=== PATIENT | male | born 1965 | race Caucasian/White ===

== ENCOUNTER 2020-10-16 14:05 | Outpatient (CLI) | payer OTHER, SELFPAY ==
[2020-10-16 14:46] LABS: Anion Gap 5 mmol/L (8-16); Blood Urea Nitrogen 16 mg/dL (9-20); Calcium 9.4 mg/dL (8.4-10.2); Carbon Dioxide 30 mmol/L (22-30); Chloride 106 mmol/L (98-107); Estimated Glomerular Filt Rate > 60; Glucose 73 mg/dL (75-110); Potassium 3.6 mmol/L (3.4-5.0); Sodium 141 mmol/L (137-145)
[2020-10-16 14:50] LABS: Prothrombin Time 13.6 Seconds (11.1-14.7)
[2020-10-16 14:51] LABS: Partial Thromboplastin Time 30.7 SECONDS (22.3-36.8)
== END 2020-10-16 14:06 | disposition home or self-care (01) ==
PROVIDERS: Anesthesiology; PCP Family Medicine; Visit Provider Urology
DX: N20.0 Calculus of kidney (principal); Z79.899 Other long term (current) drug therapy; Z01.818 Encounter for other preprocedural examination
CPT/HCPCS: 36415; 80048; 85610; 85730; 87086

== ENCOUNTER → 2020-10-17 01:47 | Outpatient (CLI) | payer OTHER, SELFPAY ==
[2020-10-17 19:23] LABS: SARS-CoV-2 RNA PCR Negative
== END ==
PROVIDERS: PCP Family Medicine; Visit Provider Urology
DX: Z01.812 Encounter for preprocedural laboratory examination (principal); Z20.822 Contact with and (suspected) exposure to COVID-19
CPT/HCPCS: C9803; U0003; U0005

== ENCOUNTER 2020-10-20 02:40 | Day surgery (SDC) | payer OTHER, SELFPAY ==
[2020-10-13 09:43] VITALS: BMI 34.7
--- NOTE | 2020-10-19 10:25 | WPDANESEPPF ---
Anes - Initial Pre Proc Eval Procedure: Operation Date: 10/20/20 09:30 Proposed Procedures p Cystoscopy, With Possible Left Retrograde Pyelogram - Garrison Rodriguez MD s Left Extracorporeal Shock Wave Lithotripsy - Garrison Rodriguez MD Date/Time: 10/19/20 10:25 Surgeon: Garrison Rodriguez MD Pre Op Diagnosis: Left Renal Stone Patient Data Age: 55 Gender: M Height: 1.75 m Weight: 106.6 kg Allergies Allergy/AdvReac Type Severity Reaction Status Date / Time codeine Allergy Severe Hives Verified 10/20/20 08:12 PCN Allergy Severe Hives Uncoded 10/20/20 08:12 Home Medications Medication Instructions Recorded Confirmed Type albuterol 90 mcg INHALATION Q6H PRN 10/13/20 10/13/20 History aspirin [Adult Aspirin] 81 mg PO DAILY 10/13/20 10/20/20 History atorvastatin 20 mg PO 3XW 10/13/20 10/13/20 History budesonide-formoterol [Symbicort] 2 puff INHALATION BID 10/13/20 10/13/20 History carvedilol 12.5 mg PO BID 10/13/20 10/20/20 History ergocalciferol (vitamin D2) 1,000 unit PO DAILY 10/13/20 10/20/20 History [Vitamin D2] famotidine 20 mg PO DAILY 10/13/20 10/13/20 History leflunomide 20 mg PO DAILY 10/13/20 10/13/20 History lisinopril 10 mg PO BID 10/13/20 10/13/20 History montelukast 10 mg PO DAILY 10/13/20 10/13/20 History multivitamin [Men's Multi-Vitamin] 1 tablet PO DAILY 10/13/20 10/13/20 History omega 5-rve-tcu-fish oil [Fish Oil] 1 cap PO DAILY 10/13/20 10/13/20 History omeprazole 20 mg PO DAILY 10/13/20 10/13/20 History spironolactone 12.5 mg PO BID 10/13/20 10/13/20 History vitamin B80-akmbf acid 1 tablet PO DAILY 10/13/20 10/13/20 History Patient hx anesthesia problems: none Family hx anesthesia problems: none PMFSH Past Medical History Medical History (Updated 10/20/20 @ 08:37 by Jero Cerda DO) Asthma Cardiomyopathy EF -50% GERD (gastroesophageal reflux disease) Hyperlipidemia Hypertension ALAN (obstructive sleep apnea) Social History Social History Smoking status: Never smoker Alcohol intake: never Substance use: never Substance use type: does not use Living arrangements: with family Spiritual care concerns: No Anes - Eval Final PreProcedure Day of Procedure 10/19/20 10:25 Patient weight: obese Heart: regular rate and rhythm Lungs: clear to auscultation and normal air movement Airway: Mallampati scale class II Neurological: alert and oriented Last oral intake: >/= 8 hours ASA classification: III Emergent: no Anesthetic plan: proceed Anesthesia type and monitoring: general LMA and standard monitoring Informed Consent: The patient's anesthetic plan and its attendant risks and benefits were discussed with the patient/family/POA. Questions were solicited and answers provided to the satisfaction of the patient/family/POA.
[2020-10-20] VITALS (7 sets, daily range): BP systolic 108–141; BP diastolic 72–83; PULSE 57–70; RESP 10–20; TEMP 35.7–36.6; O2SAT 99–100
--- NOTE | ~2020-10-20 | XR_ITS ---
EXAMINATION: XR abdomen/kub 1V INDICATION: Planning for left lithotripsy TECHNIQUE: Supine views of the abdomen were obtained on 2 radiographs. COMPARISON: None FINDINGS: No definite urolithiasis is identified. Pelvic calcifications likely reflect phleboliths. T he bowel gas pattern is normal. IMPRESSION: 1. No definite urolithiasis identified. Reviewed, dictated and finalized at location [facility].
--- NOTE | 2020-10-20 06:21 | WPDHPUPDATE1 ---
History and Physical Update Update Date/Time: 10/20/20 06:21 History and Physical has been reviewed, including an updated exam of the patient. There are NO changes in the patient's condition. Risks, benefits, and alternatives have been discussed and questions answered. Patient agrees to proceed with procedure.
[2020-10-20] MEDS: LACTATED RINGERS 1,000 ML 30 ML IV CONT (08:40)
--- NOTE | 2020-10-20 08:58 | SUR.PREOP ---
films at foot of bed just on crutches pre arrival for recent injury
[2020-10-20] MEDS: levoFLOXacin 500 MG/D5W 100 ML 500 MG/100 ML BAG 100 MG IVPB (09:26)
--- NOTE | 2020-10-20 09:55 | PM.PROC ---
Procedure Note - Detailed Date of procedure: 10/20/20 Pre-op diagnosis: Left Renal Stone Post-op diagnosis: same Procedure performed: 1. Cystoscopy, left retrograde pyelography 2. Left ESWL Description of procedure: The patient was brought to the operative suite where he was placed in the supine position on the Dornier lithotripter table. Flexible cystoscopy was undertaken with a 16F flexible cystoscopy. There were no urethral strictures. The prostatic urethra estimated length was 1.5cm. There was mild obstruction of the prostatic urethra with no median lobe enlargement. The bladder mucosa was normal and there was a single, orthotopic ureteral orifice bilaterally. A 0.035 glidewire was advanced into the left renal pelvis under fluoroscopy. An angiographic catheter was placed and used to inject contrast so that the upper pole calyx (site of 6mm stone) could be located. A total of 2500 shocks were delivered at a power setting of 4. There appeared to be good fragmentation of the stone. The patient tolerated the procedure well and was taken to the recovery room in good condition. Anesthesia: GLMA Surgeon: Garrison Rodriguez MD Estimated blood loss (mL): 0 Drains: No Packing: No Pathology: none sent Complications: No immediate complications Condition: stable Disposition: PACU
== END 2020-10-20 12:10 | disposition home or self-care (01) ==
PROVIDERS: PCP Family Medicine; Visit Provider Urology
PROC: (CPT 52352; principal; 2020-10-20 09:30)
PROC: (CPT 50590; 2020-10-20 09:30)
DX: N20.0 Calculus of kidney (principal); Z79.82 Long term (current) use of aspirin; Z79.51 Long term (current) use of inhaled steroids; J45.909 Unspecified asthma, uncomplicated; I42.9 Cardiomyopathy, unspecified; E78.5 Hyperlipidemia, unspecified; I10 Essential (primary) hypertension; G47.33 Obstructive sleep apnea (adult) (pediatric); E66.9 Obesity, unspecified; Z68.35 Body mass index [BMI] 35.0-35.9, adult; M19.90 Unspecified osteoarthritis, unspecified site; K21.9 Gastro-esophageal reflux disease without esophagitis
CPT/HCPCS: 50590; 36415; 74018; 80048; 85610; 85730; 87086; A9270; C1758; C1769; C9803; J1956; J2250; J2405; J2704; J3010; J7030; J7120; Q9966; U0003; U0005

== ENCOUNTER 2020-11-03 14:06 | Outpatient (CLI) | payer OTHER, SELFPAY ==
--- NOTE | ~2020-11-03 | XR_ITS ---
XR abdomen/kub 1V DATE: 11/03/2020 14:26 INDICATION: Left kidney stone TECHNIQUE: AP projection, 2 views COMPARISON: 10/20/2020 KUB FINDINGS: No evidence of bowel obstruction. The psoas shadows are intact. No visceromegaly is evident . No significant abnormal calcification is evident. The lung bases appear clear. Included skeletal structures are unremarkable. IMPRESSION: Nonspecific abdomen Reviewed, dictated and finalized at [facility]. Reviewed, dictated and finalized at location [facility]. IMPRESSION: Nonspecific abdomen
== END 2020-11-03 14:07 | disposition home or self-care (01) ==
PROVIDERS: PCP Family Medicine; Visit Provider Urology
DX: N20.0 Calculus of kidney (principal)
CPT/HCPCS: 74018

== ENCOUNTER → 2020-11-08 13:20 | Outpatient (CLI) | payer OTHER, SELFPAY ==
--- NOTE | ~2020-11-08 | CT_ITS ---
EXAMINATION: CT abdomen pelvis wo con DATE: 11/08/2020 13:33 INDICATION: Bilateral renal stones TECHNIQUE: Computed tomography (CT) of the abdomen and pelvis was performed without intravenous contr ast. The dose-length product was 999.83 mGy-cm. Automated exposure control and iterative reconstructi on technique were employed. COMPARISON: None. FINDINGS: Lung bases are unremarkable. Heart size is normal. No significant vascular abnormality. No lymphadenopathy. There are bilateral nonobstructing renal stones measuring 3 mm or less. No ureteral stones or hydronephrosis. Gallbladder is present. Enlarged prostate gland. Fatty infiltration of the liver. Spleen, pancreas, adrenal glands are unremarkable. Nonobstructive bowel gas pattern. No free a ir or free fluid. IMPRESSION: 1. Nonobstructing bilateral nephrolithiasis. 2: Enlarged prostate gland. 3: Hepatic steatosis. Reviewed, dictated and finalized at location [facility].
== END ==
PROVIDERS: Visit Provider Nurse Practitioner Adult Health
DX: N20.0 Calculus of kidney (principal); K76.0 Fatty (change of) liver, not elsewhere classified; N40.0 Benign prostatic hyperplasia without lower urinary tract symptoms
CPT/HCPCS: 74176

== ENCOUNTER 2021-06-01 07:55 | Outpatient (RCR) | payer OTHER, SELFPAY ==
[2021-06-01 08:10] VITALS: BP 124/67; PULSE 81; RESP 20; TEMP 36; O2SAT 97
[2021-06-01] MEDS: ACETAMINOPHEN 325 MG TABLET 650 MG PO (08:13)
[2021-06-01] MEDS: FAMOTIDINE 20 MG TABLET PO (08:14)
[2021-06-01] MEDS: diphenhydrAMINE HCl CAP 25 MG CAPSULE PO (08:14)
[2021-06-01 09:46] VITALS: BP 108/66
--- NOTE | 2021-06-04 08:48 | PC.NURSE ---
Called Mr Dominguez and he is going to return our call per his .
--- NOTE | 2021-06-04 09:30 | PC.NURSE ---
MR Dominguez and his called back, he stated he is having a rough morning. He stated he has had a headache all weekend and a fever Friday evening, he woke up today feeling very weak, and feeling like he is going to fall over he stated. He also, said he has a horrible stomach ache and his is going to call EMS for him as he is to weak to walk she said. They will update us they verbalized.
== END 2021-06-01 17:00 ==
LOC: AMCINF 07:55
PROVIDERS: PCP Physician Assistant; Visit Provider Internal Medicine Hematology & Oncology
DX: U07.1 COVID-19 (principal); I42.9 Cardiomyopathy, unspecified; J44.9 Chronic obstructive pulmonary disease, unspecified
CPT/HCPCS: A9270; M0243; Q0244

== ENCOUNTER 2023-06-10 13:29 | Emergency (ER) | payer OTHER, SELFPAY ==
--- NOTE | ~2023-06-10 | CT_ITS ---
EXAMINATION: CT abdomen pelvis wo con DATE: 06/10/2023 14:35 INDICATION: Nephrolithiasis presenting with right flank pain. TECHNIQUE: Computed tomography (CT) of the abdomen and pelvis was performed without intravenous contr ast. Automated exposure control and iterative reconstruction technique were employed. The dose-length product was 857.45 mGy-cm. COMPARISON: None FINDINGS: Discoid atelectasis in the bilateral lower lobes. Calcified right lower lobe nodule along with calcif ied right hilar lymph nodes consistent with old granulomatous disease. Heart size is normal. No peric ardial or pleural effusion. Bilateral gynecomastia. Extensive diffuse hepatic steatosis. Gallbladder, spleen, pancreas and bilateral adrenal glands are normal. 3 mm distal right ureteral stone with mild right hydroureteronephrosis. 6 7 7 mm nonobstructing stone at a middle calyx of the left kidney. No left-sided ureteral stones or hydronephrosis. Bowels including the appendix are normal. Bladder is no rmal. Prostatomegaly. No free intraperitoneal gas or fluid. No pathologically enlarged abdominal or p elvic lymphadenopathy. Mild lumbar and lower thoracic spondylosis. IMPRESSION: 1. Bilateral nephrolithiasis with obstructing 3 mm right ureteral stone with mild right hydroureteron ephrosis. 2. Diffuse hepatic steatosis. 3. Prostatomegaly. Reviewed, dictated and finalized at location A. [employer] IMPRESSION: 1. Bilateral nephrolithiasis with obstructing 3 mm right ureteral stone with mi ld right hydroureteronephrosis. 2. Diffuse hepatic steatosis. 3. Prostatomegaly.
[2023-06-10 13:44] VITALS: BP 153/107; PULSE 84; RESP 16; TEMP 36.4; O2SAT 97
--- NOTE | 2023-06-10 13:47 | ED.ABDPAIN ---
HPI - Abdominal Pain General Chief Complaint: Abdominal Pain <Kim Wiggins APRN - Last Filed: 06/10/23 13:52> Stated Complaint: R. flank pain <Kim Wiggins APRN - Last Filed: 06/10/23 13:52> Time Seen by Provider: 06/10/23 22:18 <Kim Wiggins APRN - Last Filed: 06/10/23 13:52> Source: patient and family (spouse) <Kim Wiggins APRN - Last Filed: 06/10/23 13:52> Mode of arrival: ambulatory <Kim Wiggins APRN - Last Filed: 06/10/23 13:52> Limitations: no limitations <Kim Wiggins APRN - Last Filed: 06/10/23 13:52> History of Present Illness HPI narrative: Patient is a pleasant 57-year-old male with a past medical history as noted below who presents emergency department today ambulatory with his spouse for evaluation of right-sided flank pain that started 2 days ago. Patient states the pain has gotten much worse. It radiates around his right side. He has a history of kidney stones. He has seen Dr. Rodriguez here before with Urology. Patient states last 2 days his urine has been dark but he has not noticed any blood or blood clots. He denies any fever. He states he has had nausea without any vomiting. He states the pain has gotten much worse today and is radiating around to his groin region. <Kim Wiggins APRN - Last Filed: 06/10/23 13:52> Related Data Home Medications: Home Medications Medication Instructions Recorded Confirmed albuterol 90 mcg/actuation aerosol 90 mcg inhalation Q6H PRN 10/13/20 06/01/21 inhaler Bronchospasm aspirin 81 mg tablet 81 mg PO DAILY 10/13/20 06/01/21 atorvastatin 20 mg tablet 20 mg PO 3XW 10/13/20 06/01/21 carvedilol 12.5 mg tablet 12.5 mg PO BID 10/13/20 06/01/21 famotidine 20 mg tablet 20 mg PO DAILY 10/13/20 06/01/21 leflunomide 20 mg tablet 20 mg PO DAILY 10/13/20 06/01/21 lisinopril 10 mg tablet 10 mg PO BID 10/13/20 06/01/21 montelukast 10 mg tablet 10 mg PO DAILY 10/13/20 06/01/21 multivitamin 1 tablet PO DAILY 10/13/20 06/01/21 omeprazole 20 mg capsule,delayed 20 mg PO DAILY 10/13/20 06/01/21 release spironolactone 25 mg tablet 12.5 mg PO BID 10/13/20 06/01/21 vitamin B12 500 mcg-folic acid 400 1 tablet PO DAILY 10/13/20 06/01/21 mcg tablet budesonide-formoterol HFA 160 2 puff inhalation Q12H 06/01/21 06/01/21 mcg-4.5 mcg/actuation aerosol inhaler (Symbicort) cholecalciferol (vitamin D3) 25 25 mcg PO DAILY 06/01/21 06/01/21 mcg (1,000 unit) capsule (Vitamin D3) docosahexaenoic acid (dha)-epa 120 1 cap PO BID 06/01/21 06/01/21 mg-180 mg capsule (Fish Oil) <Kim Wiggins BERRY GROWER - Last Filed: 06/10/23 13:52> Allergies/Adverse Reactions: Allergies Allergy/AdvReac Type Severity Reaction Status Date / Time codeine Allergy Severe Hives Verified 06/01/21 08:25 PCN Allergy Severe Hives Uncoded 06/01/21 08:25 <Kim Wiggins BERRY GROWER - Last Filed: 06/10/23 13:52> Review of Systems Review of Systems: CONSTITUTIONAL: Denies fever +chills/ sweats. CARDIOVASCULAR: Denies chest pain, palpitations, or edema. RESPIRATORY: Denies cough or dyspnea. GASTROINTESTINAL: +right flank pain radiating around to right lower abdomen/groin. +nausea. Denies vomiting or diarrhea. GENITOURINARY: +dark urine. Denies dysuria or hematuria. SKIN: Denies rash or itching. NEUROLOGIC: Denies headache <Kim Wiggins BERRY GROWER - Last Filed: 06/10/23 13:52> All systems reviewed & are unremarkable except as noted in HPI and below <Kim Wiggins APRN - Last Filed: 06/10/23 13:52> [facility] Past Medical History Medical History: Medical History Asthma Cardiomyopathy EF -50% GERD (gastroesophageal reflux disease) Hyperlipidemia Hypertension ALAN (obstructive sleep apnea) <Kim Wiggins APRN - Last Filed: 06/10/23 13:52> Social History Social History: Social History Smoking status: Never sm
[2023-06-10] MEDS: ONDANSETRON INJ 4 MG/2 ML VIAL IV PUSH ×2 (13:58→22:41)
[2023-06-10] MEDS: SODIUM CHLORIDE 0.9% IV 1,000 ML 999 ML IV CONT (13:58)
[2023-06-10] MEDS: KETOROLAC 30 MG/ML VIAL (*BKC) IV PUSH ×2 (13:58→22:42)
[2023-06-10 14:10] LABS: Basophils Absolute Auto 0.1 K/mm3 (0.0-0.1); Basophils Percent Auto 1.6 % (0.2-1.2); Eosinophils Absolute Auto 0.6 K/mm3 (0-0.3); Hematocrit 43.3 % (42.0-52.0); Hemoglobin 14.1 g/dL (14.0-18.0); Immature Granulocyte Absolute 0.04 K/mm3 (0.00-0.031); Immature Granulocyte Percent A 0.5 % (0-0.5); Lymphocytes Absolute Auto 1.82 K/mm3 (0.9-3.2); Lymphocytes Percent Auto 22.1 % (18.3-44.2); Mean Corpuscular HGB Conc 32.6 g/dl (32-36); Mean Corpuscular Hemoglobin 28.3 pg (26-34); Mean Corpuscular Volume 86.9 fl (80-100); Mean Platelet Volume 10.1 fl (7.4-10.4); Monocytes Percent Auto 11.5 % (2.6-8.5); Neutrophils Absolute Auto 4.7 K/mm3 (1.3-6.7); Neutrophils Percent Auto 57.3 % (45.5-73.1); Platelet Count Result 268 k/mm3 (150-375); Red Blood Count 4.98 M/mm3 (4.6-6.20); Red Cell Distribution Width 13.5 % (11.5-14.5); White Blood Count 8.2 K/mm3 (4.5-10.0)
[2023-06-10 14:14] LABS: Appearance Urine Clear (Clear); Bacteria Urine None Seen /hpf; Bilirubin Urine Negative (Negative); Blood Urine 3+ (Negative); Color Urine Yellow (Yellow); Glucose Urine UA Negative (Negative); Ketones Urine Negative (Negative); Leukocyte Esterase Ur Negative LEU/UL (Negative); Nitrate Urine Negative (Negative); Non Pathogenic Casts 0-2; Protein Urine Negative (Negative); RBC Urine >100 /hpf (0-2); Specific Grav Ur 1.014 (1.001-1.035); Squamous Epithelial Cell Urine None seen /hpf (Few); Urobilinogen Urine 0.2 mg/dL (<2.0); WBC Urine 0-5 /hpf; pH Urine 6.5 (5.0-9.0)
[2023-06-10 14:18] LABS: Alanine Aminotransferase 34 U/L (6-50); Albumin Level 4.2 g/dL (3.5-5.1); Alkaline Phosphatase 95 U/L (38-126); Anion Gap 7 mmol/L (8-16); Aspartate Amino Transferase 30 U/L (17-59); Bilirubin,Total 0.6 mg/dL (0.2-1.3); Blood Urea Nitrogen 13 mg/dL (9-20); Calcium 9.1 mg/dL (8.4-10.2); Carbon Dioxide 26 mmol/L (22-30); Chloride 107 mmol/L (98-107); Estimated Glomerular Filt Rate > 60; Glucose 91 mg/dL (65-110); Potassium 4.1 mmol/L (3.4-5.0); Sodium 140 mmol/L (137-145)
[2023-06-10 14:20] LABS: Add Urine Microscopic? YES
[2023-06-10 19:13] VITALS: BP 142/89; PULSE 72; RESP 16; TEMP 36.2; O2SAT 100
[2023-06-10 22:17] VITALS: BP 157/101; PULSE 87; RESP 15; TEMP 36.6; O2SAT 100
[2023-06-10] MEDS: MORPHINE SULFATE (*CRX) 4 MG/ML INJ IV PUSH (22:43)
[2023-06-10 23:39] VITALS: BP 138/92; PULSE 82; RESP 15; TEMP 36.6; O2SAT 100
== END 2023-06-10 23:40 | disposition home or self-care (01) ==
PROVIDERS: Nurse Practitioner; Emergency Provider Emergency Medicine; PCP Physician Assistant
DX: N13.2 Hydronephrosis with renal and ureteral calculous obstruction (principal); I42.9 Cardiomyopathy, unspecified; I10 Essential (primary) hypertension; E78.5 Hyperlipidemia, unspecified; G47.33 Obstructive sleep apnea (adult) (pediatric); K21.9 Gastro-esophageal reflux disease without esophagitis; J45.909 Unspecified asthma, uncomplicated; Z79.82 Long term (current) use of aspirin; Z79.51 Long term (current) use of inhaled steroids
CPT/HCPCS: 36415; 74176; 80053; 81001; 85025; 96361; 96374; 96375; 96376; 99284; J1885; J2270; J2405; J7030

== ENCOUNTER → 2023-07-02 11:05 | Outpatient (CLI) | payer OTHER, SELFPAY ==
--- NOTE | ~2023-07-02 | XR_ITS ---
Supine and upright views of the abdomen Clinical history: Renal stones COMPARISON: 11/03/2020 Findings: Bowel gas pattern is nonspecific. No evidence for obstruction or free air. Possible subtle small left renal stones. No definite right renal stone seen. Osseous structures are intact. Impression: Possible small subtle left renal stones. Reviewed, dictated and finalized at [facility]. [employer] Impression: Possible small subtle left renal stones.
== END ==
PROVIDERS: PCP Urology; Visit Provider Urology
DX: N20.0 Calculus of kidney (principal)
CPT/HCPCS: 74018